=== PATIENT | female | born 1945 | race Caucasian/White ===

== ENCOUNTER 2018-02-03 15:12 | Emergency (ER) | payer MEDICARE ==
[2018-02-03] MEDS ORDERED: Sodium Bicarbonate 2.5 MEQ/5 ML VIAL ONE (15:32)
[2018-02-03] MEDS ORDERED: Amoxicillin/Potassium Clav 875 MG TAB ONE (16:58)
[2018-02-03] MEDS ORDERED: Adacel (T-DAP) 0.5 ML VIAL ONE (17:03)
== END 2018-02-03 17:09 | disposition home or self-care (01) ==
LOC: BURERS 15:12
DX: S81.851A Open bite, right lower leg, initial encounter (principal); S81.811A Laceration without foreign body, right lower leg, initial encounter; W54.0XXA Bitten by dog, initial encounter
CPT/HCPCS: 12032; 90471; 90715

== ENCOUNTER 2018-02-21 01:05 | Emergency (ER) | payer MEDICARE | END 2018-02-21 01:57 | disposition home or self-care (01) | LOC: BURERS 01:05 | DX: J06.9 Acute upper respiratory infection, unspecified (principal) | CPT/HCPCS: 99283 ==